=== PATIENT | female | born 1960 | race Caucasian/White ===

== ENCOUNTER 2020-07-14 17:26 | Observation (INO) | payer OTHER ==
--- NOTE | 2020-07-14 18:13 | ED ---
General Adult HPI - General Chief complaint: Recheck/Abnormal Lab/Rx Stated complaint: Abn Labs Time Seen by Provider: 07/14/20 17:30 Source: patient, EMS, RN notes reviewed, old records reviewed Mode of arrival: EMS Limitations: no limitations - History of Present Illness Initial comments: This is a 60-year-old female who presents emergency department from [facility]. Patient was told to come to the hospital because her creatinine was elevated and she went to [place] in the repeated blood work and determine it was elevated and they wanted her transferred to see nephrology per her doctor's instructions. Patient states she's been a symptomatic she's had no recent fever chills or cough she's had no dysuria or hematuria. Patient denies any abdominal pain patient's nausea vomiting diarrhea. Patient denies any shortness of breath or difficulty breathing. Patient denies any kidney problems in the past. Patient denies any medication changes. - Related Data Allergies Allergy/AdvReac Type Severity Reaction Status Date / Time No Known Allergies Allergy Verified 07/14/20 17:40 Review of Systems ROS Statement: Those systems with pertinent positive or pertinent negative responses have been documented in the HPI. ROS Other: All systems not noted in ROS Statement are negative. Past Medical History Past Medical History: Atrial Fibrillation, Heart Failure, Hypertension, Osteoarthritis (OA) History of Any Multi-Drug Resistant Organisms: None Reported Past Surgical History: Heart Catheterization, Orthopedic Surgery, Pacemaker Additional Past Surgical History / Comment(s): Cardioverted, loop recorder, RUI Past Psychological History: No Psychological Hx Reported Smoking Status: Never smoker Past Alcohol Use History: Occasional Past Drug Use History: None Reported General Exam - General Exam Comments Initial Comments: GENERAL: Patient is well-developed and well-nourished. Patient is nontoxic and well- hydrated and is in no acute distress. ENT: Neck is soft and supple. No significant lymphadenopathy is noted. Oropharynx is clear. Moist mucous membranes. Neck has full range of motion without eliciting any pain. EYES: The sclera were anicteric and conjunctiva were pink and moist. Extraocular movements were intact and pupils were equal round and reactive to light. Eyelids were unremarkable. PULMONARY: Unlabored respirations. Good breath sounds bilaterally. No audible rales rhonchi or wheezing was noted. CARDIOVASCULAR: There is a regular rate and rhythm without any murmurs gallops or rubs. ABDOMEN: Soft and nontender with normal bowel sounds. SKIN: Skin is clear with no lesions or rashes and otherwise unremarkable. NEUROLOGIC: Patient is alert and oriented x3. Cranial nerves II through XII are grossly intact. Motor and sensory are also intact. Normal speech, volume and content. Symmetrical smile MUSCULOSKELETAL: Normal extremities with adequate strength and full range of motion. No lower extremity swelling or edema. No calf tenderness. LYMPHATICS: No significant lymphadenopathy is noted PSYCHIATRIC: Normal psychiatric evaluation. Limitations: no limitations Course Vital Signs 07/14/20 07/14/20 17:30 18:20 Temperature 98.5 F Pulse Rate 66 85 Respiratory 18 18 Rate Blood Pressure 135/56 142/67 O2 Sat by Pulse 100 100 Oximetry Medical Decision Making - Medical Decision Making I spoke with the significant hospice agreed to admit the patient admitted the patient wrote admitting orders. - Lab Data Lab Results 07/14/20 Range/Units 18:20 Urine Color Colorless Urine Appearance Clear (Clear) Urine pH 6.0 (5.0-8.0) Ur Specific [place] 1.007 (1.001-1.035) Urine Protein Negative (Negative) Urine Glucose (UA) Negative (Negative) Urine Ketones Negative (Negative) Urine Blood Negative (Negative) Urine Nitrite Negative (Negative) Urine Bilirubin Negative (Negative) Urine Urobilinogen <2.0 (<2.0) mg/dL Ur Leukocyte Esterase Negative (Negative) Disposition Clinical Impression: Acute renal failure Disposition: ADMITTED IP TO THIS HOSP Referrals: Jimmy Guerra MD [Primary Care Provider] - 1-2 days Time of Disposition: 19:10
[2020-07-14] MEDS ORDERED: SODIUM CHLORIDE 0.9% 1,000 ML IV SCH (18:15)
[2020-07-14 18:28] LABS: Appearance,Urine Clear (Clear); Bilirubin,Urine Negative (Negative); Blood,Urine Negative (Negative); Color,Urine Colorless; Glucose,Urine (UA) Negative (Negative); Ketones,Urine Negative (Negative); Leukocyte Esterase,Urine Negative (Negative); Nitrite,Urine Negative (Negative); Protein,Urine Negative (Negative); Specific Gravity,Urine 1.007 (1.001-1.035); Urobilinogen,Urine <2.0 mg/dL (<2.0)
--- NOTE | 2020-07-14 18:51 | US ---
EXAMINATION TYPE: US renals and bladder DATE OF EXAM: 07/14/2020 COMPARISON: NONE CLINICAL HISTORY: Acute renal failure. Difficult exam due to overlying bowel gas and patient body hab itus EXAM MEASUREMENTS: Right Kidney: 9.7 x 4.6 x 5.0 cm Left Kidney: 11.3 x 4.7 x 5.2 cm Right Kidney: No hydronephrosis or masses seen. Measuring smaller than left Left Kidney: No hydronephrosis or masses seen Bladder: Not fully distended, wnl as visualized Bilateral Jets seen: No IMPRESSION: No evidence of renal mass or obstruction. Urinary bladder appears normal. No ureteral jet seen during the exam.
[2020-07-14] MEDS ORDERED: SODIUM CHLORIDE 0.9% 1,000 ML IV ONE (19:45)
[2020-07-15] MEDS ORDERED: SODIUM CHLORIDE 0.9% 500 ML 500 ML IV ONE (01:03)
[2020-07-15] MEDS ORDERED: SODIUM CHLORIDE 0.9% 1,000 ML IV ONE (01:44)
[2020-07-15] MEDS: SODIUM CHLORIDE 0.9% 1,000 ML IV SCH ×4 (02:40→20:03)
[2020-07-15] MEDS ORDERED: ACETAMINOPHEN TAB 500 MG TAB PO PRN (12:55)
[2020-07-15 13:30] LABS: Basophils % (A) 0 %; Eosinophils # (A) 0.1 k/uL (0-0.7); Eosinophils % (A) 2 %; HCT 33.2 % (34.0-46.0); HGB 10.5 gm/dL (11.4-16.0); Hypochromasia Slight; Lymphocytes # (A) 1.2 k/uL (1.0-4.8); Lymphocytes % (A) 25 %; MCH 32.4 pg (25.0-35.0); MCHC 31.7 g/dL (31.0-37.0); MCV 102.1 fL (80.0-100.0); Macrocytosis Slight; Mean Platelet Volume 10.8; Monocytes # (A) 0.4 k/uL (0-1.0); Monocytes % (A) 9 %; Neutrophils # (A) 2.8 k/uL (1.3-7.7); Neutrophils % (A) 60 %; Platelet Count 173 k/uL (150-450); RBC 3.25 m/uL (3.80-5.40); RDW 13.9 % (11.5-15.5); WBC 4.7 k/uL (3.8-10.6)
[2020-07-15] MEDS: AMIODARONE 200 MG TAB PO SCH (13:51)
[2020-07-15] MEDS: ASPIRIN 81 MG PO SCH (13:51)
[2020-07-15 13:54] LABS: African American GFR (CKD) 35 (>60 ml/min/1.73 sqM); Anion Gap 5 mmol/L; Blood Urea Nitrogen 44 mg/dL (7-17); Calcium 8.3 mg/dL (8.4-10.2); Carbon Dioxide 25 mmol/L (22-30); Chloride 112 mmol/L (98-107); Glucose 145 mg/dL (74-99); Non-African American GFR(CKD) 30 (>60 ml/min/1.73 sqM); Potassium 5.3 mmol/L (3.5-5.1); Sodium 142 mmol/L (137-145)
[2020-07-15] MEDS ORDERED: NON FORMULARY DRUG (Metoprolol Tartrate [Lopressor] 100 MG Tablet) PO SCH (16:00)
[2020-07-15] MEDS: RIVAROXABAN 20 MG TAB PO SCH (16:45)
[2020-07-15 18:19] LABS: Appearance,Urine Clear (Clear); Bilirubin,Urine Negative (Negative); Blood,Urine Negative (Negative); Color,Urine Light Yellow; Glucose,Urine (UA) Negative (Negative); Ketones,Urine Negative (Negative); Leukocyte Esterase,Urine Trace (Negative); Nitrite,Urine Negative (Negative); PH, Urine 5.5 (5.0-8.0); Protein,Urine Negative (Negative); RBC,Urine <1 /hpf (0-5); Specific Gravity,Urine 1.017 (1.001-1.035); Squamous Epithelial Cell,Urine 1 /hpf (0-4); Urobilinogen,Urine <2.0 mg/dL (<2.0); WBC,Urine 3 /hpf (0-5)
--- NOTE | 2020-07-15 19:02 | CONS ---
CONSULTATION REASON FOR CONSULT: Renal failure. HISTORY OF PRESENT ILLNESS: Patient is a 60-year-old female who was transferred from [facility] because of renal failure. The patient stated that she was called by her PCP, as her labs were abnormal and serum creatinine was significantly elevated, and she was advised to go into the hospital. She was then transferred from [place] for need for nephrology evaluation. The patient denies any prior history of kidney diseases. She denies any change in her urine output prior to admission. Of note, systolic blood pressure was noted to be in the 70s early this morning. The patient did admit to occasional lightheadedness and dizziness prior to admission. She is maintained on ZO inhibitors as outpatient and she did admit to occasional use of NSAIDs, although not on a frequent basis. No changes in her diuretics or ZO inhibitors recently. I do not have the previous creatinine, but the serum creatinine from today was 1.8 mg/dL. The patient is maintained on IV fluids. Her current UA is completely benign. PAST MEDICAL HISTORY: Hypertension, atrial fibrillation, osteoarthritis. PAST SURGICAL HISTORY: Cardiac catheterization, pacemaker placement, RUI. SOCIAL HISTORY: Negative for smoking, drug abuse or alcohol abuse. MEDICATIONS: Medications prior to admission included Zoloft, vitamin D3, Lipitor, Tylenol, potassium, Lopressor, Lasix, amiodarone, lisinopril, Xarelto, Imdur, Ecotrin, vitamin B12. REVIEW OF SYSTEMS: As per HPI. Other systems negative. PHYSICAL EXAMINATION: Patient is comfortable, awake, alert, oriented x3, not in any acute distress. Blood pressure 92/55, heart rate 58 per minute. She is afebrile. EXAMINATION OF THE HEART: S1 and S2. EXAMINATION OF LUNGS: Bilateral breath sounds are heard. ABDOMEN: Soft, non-tender and obese. Examination of lower extremities shows no evidence of edema. SUSTAINABILITY PROJECT COORDINATOR exam is grossly intact. LABS/IMAGING: Sodium 142, potassium 5.3, chloride 112. CO2 is 25, BUN 44, creatinine 1.8. UA is completely benign, with no evidence of blood or protein in the urine. Ultrasound of the kidneys done yesterday shows no evidence of renal masses, hydronephrosis or stones. Right kidney 9.7 cm. Left kidney 11.3 cm. ASSESSMENT: 1. Acute kidney injury secondary to hypotension in the setting of use of ZO inhibitors with occasional use of NSAIDs as well prior to admission. Currently patient has good urine output. She is maintained on IV fluids. I have a creatinine of 1.8 mg/dL. Prior labs are not available for comparison. Patient is advised that she will be maintained on IV fluids. She needs to continue to hold off on the ZO inhibitors, avoid NSAIDs, and we will repeat labs in a.m. 2. Mild hyperkalemia associated with acute kidney injury. Expect improvement with improving renal function. 3. Rule out chronic kidney disease. UA is completely benign and ultrasound is also unremarkable. We will try to obtain previous serum creatinine levels. 4. Anemia; rule out iron deficiency. PLAN: Continue IV fluids. Continue to hold off on ZO inhibitors, diuretics and potassium supplementation. Try to obtain previous labs for comparison of renal function. Check iron profile. Repeat labs in a.m. Patient can likely be discharged tomorrow morning, depending on her labs. Thank you for this consultation. Will continue to follow the patient with you during her hospitalization. MMODL / ESAN: [id number] /
[2020-07-15] MEDS: busPIRone HCl 5 MG TAB PO SCH (20:03)
[2020-07-15] MEDS ORDERED: ATORVASTATIN 40 MG TAB PO SCH (21:00)
[2020-07-15] MEDS ORDERED: SERTRALINE 100 MG TAB PO SCH (21:00)
--- NOTE | 2020-07-15 23:29 | P.HPIM ---
History of Present Illness H&P Date: 07/15/20 Chief Complaint: Elevated creatinine level Patient is a 60-year-old female with a known history of atrial fibrillation status post permanent pacemaker placement and on anticoagulation with Xarelto, chronic CHF with diastolic dysfunction, hypertension, osteoarthritis was sent to hospital due to elevated creatinine level. Patient had lab work-up done as an outpatient showed elevated creatinine level of 3.2 and was sent to [facility] where she had lab work-up done with creatinine level of 2.4. Patient was sent to hospital for nephrology evaluation at [facility]. Otherwise patient denied any complaints of dysuria or hematuria. No nausea vomiting or a bdominal pain or diarrhea. Patient does take Lasix at home. No complaints of abdominal pain. No chest pain or shortness revealed no fever no chills. Denies any recent illnesses. Blood pressure was 71/36 and pulse 61 respiration 15 and pulse ox 97% on room air Renal ultrasound showed no evidence of renal mass or obstruction. Urinary bladder appears normal. No ureteral jets seen during the exam. Laboratory data showed sodium 142, potassium 5.3, chloride 112, BUN 44 and creatinine 1.8 calcium 8.3 urinalysis is negative for infection. Review of Systems Constitutional: Patient denies any fever or chills . No generalized weakness or weight loss. Abdomen: Patient denied nausea vomiting and diarrhea and abdominal pain. Cardiovascular: Patient denies any chest pain or short of breath no palpitations. Respiratory: patient denied any cough or sputum production. No shortness of breath Neurologic: Patient denied any numbness or tingling headache. Musculoskeletal: Patient denies any complaints of joint swelling or deformity. Skin: Negative Psychiatric: Negative Endocrine: No heat or cold intolerance. No recent weight gain. Genitourinary: No dysuria or hematuria. All other 14 point ROS negative except the above Past Medical History Past Medical History: Atrial Fibrillation, Heart Failure, Hypertension, Osteoarthritis (OA) History of Any Multi-Drug Resistant Organisms: None Reported Past Surgical History: Section, Heart Catheterization, Pacemaker Additional Past Surgical History / Comment(s): Cardioverted, loop recorder (2018), RUI, pacemaker (2019) Past Anesthesia/Blood Transfusion Reactions: No Reported Reaction Type of Cardiac Device: Unknown Device Placement Date:: 2018 Past Psychological History: No Psychological Hx Reported Smoking Status: Never smoker Past Alcohol Use History: Occasional Past Drug Use History: None Reported Medications and Allergies Home Medications Medication Instructions Recorded Confirmed Type Acetaminophen [Tylenol] 1,000 mg PO Q6H PRN 07/14/20 07/14/20 History Amiodarone [Cordarone] 200 mg PO DAILY 07/14/20 07/14/20 History Aspirin EC [Ecotrin Low Dose] 81 mg PO DAILY 07/14/20 07/14/20 History Atorvastatin [Lipitor] 40 mg PO HS 07/14/20 07/14/20 History Cholecalciferol [Vitamin D3 (25 2,000 unit PO DAILY 07/14/20 07/14/20 History Mcg = 1000 Iu)] Cyanocobalamin (Vitamin B-12) 1,000 mcg PO DAILY 07/14/20 07/14/20 History [Vitamin B-12] Furosemide [Lasix] 160 mg PO TUTH 07/14/20 07/14/20 History Isosorbide Mononitrate ER [Imdur] 30 mg PO DAILY 07/14/20 07/14/20 History Metoprolol Tartrate [Lopressor] 100 mg PO TID 07/14/20 07/14/20 History Potassium Chloride [Klor-Con 10] 10 meq PO DAILY 07/14/20 07/14/20 History Rivaroxaban [Xarelto] 20 mg PO DAILY 07/14/20 07/14/20 History Sertraline HCl [Zoloft] 100 mg PO HS 07/14/20 07/14/20 History busPIRone HCL 15 mg PO BID 07/14/20 07/14/20 History lisinopriL 40 mg PO DAILY 07/14/20 07/14/20 History Allergies Allergy/AdvReac Type Severity Reaction Status Date / Time No Known Allergies Allergy Verified 07/14/20 20:19 Physical Exam Vitals: Vital Signs Temp Pulse Pulse Resp BP BP Pulse Ox 07/15/20 07:51 98.7 F 58 L 16 92/55 100 07/15/20 05:12 92/54 07/15/20 01:40 72/42 07/15/20 01:03 70/40 07/15/20 00:44 97.9 F 61 15 71/36 97 07/14/20 23:36 16 07/14/20 22:27 98.8 F 71 18 113/67 97 07/14/20 21:22 62 18 113/58 100 12/30/20 18:20 85 18 142/67 100 07/14/20 17:30 98.5 F 66 18 135/56 100 Intake and Output 07/14/20 07/15/20 07/15/20 22:59 06:59 14:59 Intake Total 222 120 Balance 222 120 Intake: Oral 222 120 Other: Voiding Method Toilet Weight 149.685 kg PHYSICAL EXAMINATION: Patient is lying in the bed comfortably, no acute distress, awake alert and oriented.. HEENT: Normocephalic. Neck is supple. Pupils reactive. Nostrils clear. Oral cavity is moist. Ears reveal no drainage. Neck reveals no JVD, carotid bruits, or thyromegaly. CHEST EXAMINATION: Trachea is central. Symmetrical expansion. Lung pablo clear to auscultation and percussion. CARDIAC: Normal S1, S2 with no gallops. No murmurs ABDOMEN: Soft. Bowel sounds normal. No organomegaly. No abdominal bruits. Extremities: reveal no edema. No clubbing or cyanosis Neurologically awake, alert, oriented x3 with well-coordinated movements. No f ocal deficits noted Skin: No rash or skin lesions. Psychiatric: Coperative. Nonsuicidal Musculoskeletal: No joint swelling or deformity. Normal range of motion. Results CBC & Chem 7: 07/15/20 13:02 07/15/20 13:02 Thrombosis Risk Factor Assmnt - DVT/VTE Prophylaxis DVT/VTE Prophylaxis: Pharmacologic Prophylaxis ordered - Choose All That Apply Any of the Below Risk Factors Present?: Yes Each Factor Represents 1 point: Age 41-60 years Other Risk Factors: No Other congenital or acquired thrombophilia - If yes, enter type in comment: No Thrombosis Risk Factor Assessment Total Risk Factor Score: 1 Thrombosis Risk Factor Assessment Level: Low Risk Assessment and Plan Assessment: Acute kidney Injury secondary to hypotension due to blood pressure medication including ZO inhibitor's and Lasix. Mild hyperkalemia secondary acute kidney injury improving Atrial fibrillation chronic status post permanent pacemaker placement Morbid obesity with BMI 50.2 Macrocytic anemia rule out iron deficiency. Patient does take vitamin B12 at home. DVT prophylaxis with patient is already Xarelto Plan: Patient will be continued on IV hydration with normal saline and hold blood pressure medications at this time. Continue with amiodarone and aspirin and statins. Continue with home medications. Ultrasound of the renals showed no evidence of obstruction. UA is negative for infection. Nephrology is on board. Further recommendations based on the clinical course. Time with Patient: Greater than 30
[2020-07-16 02:03] LABS: % Iron Saturation 16.43 (12.00-45.00)
[2020-07-16 07:01] LABS: Basophils % (A) 1 %; Eosinophils # (A) 0.1 k/uL (0-0.7); Eosinophils % (A) 3 %; HCT 32.2 % (34.0-46.0); HGB 10.1 gm/dL (11.4-16.0); Hypochromasia Slight; Lymphocytes # (A) 1.1 k/uL (1.0-4.8); Lymphocytes % (A) 26 %; MCH 31.9 pg (25.0-35.0); MCHC 31.3 g/dL (31.0-37.0); Macrocytosis Slight; Mean Platelet Volume 9.9; Monocytes # (A) 0.5 k/uL (0-1.0); Monocytes % (A) 11 %; Neutrophils # (A) 2.4 k/uL (1.3-7.7); Neutrophils % (A) 55 %; Platelet Count 168 k/uL (150-450); RBC 3.16 m/uL (3.80-5.40); RDW 13.8 % (11.5-15.5); WBC 4.4 k/uL (3.8-10.6)
[2020-07-16] MEDS: RIVAROXABAN 20 MG TAB PO SCH (08:16)
[2020-07-16] MEDS: busPIRone HCl 5 MG TAB PO SCH (08:17)
[2020-07-16] MEDS: AMIODARONE 200 MG TAB PO SCH (08:17)
[2020-07-16] MEDS: ASPIRIN 81 MG PO SCH (08:17)
[2020-07-16] MEDS ORDERED: CHOLECALCIFEROL 1,000 UNIT TAB PO SCH (09:00)
[2020-07-16] MEDS ORDERED: CYANOCOBALAMIN 500 MCG TAB PO SCH (09:00)
[2020-07-16 09:41] LABS: African American GFR (CKD) 43.4 (60.0-200.0); Anion Gap 3.6 mmol/L (4.00-12.00); BUN/Creat Ratio 23.33 Ratio (12.00-20.00); Calcium 8.4 mg/dL (8.7-10.3); Carbon Dioxide 25.4 mmol/L (21.6-31.8); Non-African American GFR(CKD) 37.5 (60.0-200.0); Potassium 5.5 mmol/L (3.5-5.5)
[2020-07-16 14:55] VITALS: BP 130/88; PULSE 70; RESP 18; TEMP 97.6
[2020-07-16] MEDS ORDERED: FUROSEMIDE 10 MG/ML 2 ML VIAL IV ONE (16:00)
--- NOTE | 2020-07-16 16:29 | PN ---
PROGRESS NOTE Patient is seen for followup for acute kidney injury. She was admitted to the hospital with a hypotension and acute kidney injury. Serum creatinine was 1.8. It was actually a bit higher at [facility] prior to being transferred to [facility]. The patient was on ZO inhibitors which are currently on hold. Her renal function has improved, creatinine down to 1.5 now. Blood pressure remains on the lower side, although significantly improved. Overall, patient states she is feeling better. EXAMINATION: Blood pressure was 99/67 this morning, heart rate 77 per minute, she is afebrile. Examination of the heart S1, S2. Examination of the lungs, bilateral breath sounds are heard. Abdomen is soft, nontender. Examination of lower extremities shows no evidence of edema. COMPRESSOR REPAIRER exam grossly intact. LABS: Show sodium 143, potassium 5.5, chloride 114, BUN 35, serum creatinine 1.5. UA is completely benign. Hemoglobin 10.1 g/dL. ASSESSMENT: 1. Acute kidney injury, prerenal, associated with hypotension, hypoperfusion, currently improved. 2. Hyperkalemia associated with acute kidney injury, use of ZO inhibitors. Serum potassium is slightly higher today. Patient is not on any ZO inhibitor. She will be maintained on low-potassium diet. Blood sugars are not significantly elevated. UA is completely benign. Renal ultrasound is unremarkable. 3. Hypertension, blood pressure currently low. Hold off on antihypertensive medications. 4. Atrial fibrillation, rate is controlled, maintained on Xarelto. PLAN: Maintain patient on low-potassium diet. Continue to hold off on ZO inhibitors and followup as outpatient in about 1-2 weeks time. Repeat labs in 4-5 days post discharge to follow up on the potassium levels and maintain low-potassium diet upon discharge. MMODL / IJN: [id number] /
--- NOTE | 2020-08-02 23:45 | P.DS ---
Providers Date of admission: 07/14/20 19:49 Expected date of discharge: 07/16/20 Attending physician: Onesimo Barrera Consults: 07/14/20 19:45 Consult Physician Urgent Consulting Provider: Klarissa Hassan Consult Reason/Comments: Acute renal failure Do you want consulting provider notified?: Yes Primary care physician: Jimmy Guerra MD Hospital Course: Discharge diagnosis Acute kidney Injury secondary to hypotension due to blood pressure medication including ZO inhibitor's and Lasix. Mild hyperkalemia secondary acute kidney injury improving Atrial fibrillation chronic status post permanent pacemaker placement Morbid obesity with BMI 50.2 Macrocytic anemia rule out iron deficiency. Patient does take vitamin B12 at home. DVT prophylaxis with patient is already Xarelto Hospital course Patient is a 60-year-old female with a known history of atrial fibrillation status post permanent pacemaker placement and on anticoagulation with Xarelto, chronic CHF with diastolic dysfunction, hypertension, osteoarthritis was sent to hospital due to elevated creatinine level. Patient had lab work-up done as an outpatient showed elevated creatinine level of 3.2 and was sent to [facility] where she had lab work-up done with creatinine level of 2.4. Patient was sent to hospital for nephrology evaluation at [facility]. Otherwise patient denied any complaints of dysuria or hematuria. No nausea vomiting or abdominal pain or diarrhea. Patient does take Lasix at home. No complaints of abdominal pain. No chest pain or shortness revealed no fever no chills. Denies any recent illnesses. Blood pressure was 71/36 and pulse 61 respiration 15 and pulse ox 97% on room air Renal ultrasound showed no evidence of renal mass or obstruction. Urinary bladder appears normal. No ureteral jets seen during the exam. Laboratory data showed sodium 142, potassium 5.3, chloride 112, BUN 44 and creatinine 1.8 calcium 8.3 urinalysis is negative for infection. Plan: Patient was continued on IV hydration with normal saline and hold blood pressure medications at this time. Continued with amiodarone and aspirin and statins. Continued with home medications. Ultrasound of the renals showed no evidence of obstruction. UA is negative for infection. Nephrology is on board. Creatinine level improved to 1.5 today. Blood pressure medications adjusted. Patient was to follow-up with primary care physician for repeat lab work- up.Patient did improve symptomatically. PHYSICAL EXAMINATION: Patient is lying in the bed comfortably, no acute distress, awake alert and oriented.. HEENT: Normocephalic. Neck is supple. Pupils reactive. Nostrils clear. Oral cavity is moist. Ears reveal no drainage. Neck reveals no JVD, carotid bruits, or thyromegaly. CHEST EXAMINATION: Trachea is central. Symmetrical expansion. Lung pablo clear to auscultation and percussion. CARDIAC: Normal S1, S2 with no gallops. No murmurs ABDOMEN: Soft. Bowel sounds normal. No organomegaly. No abdominal bruits. Extremities: reveal no edema. No clubbing or cyanosis Neurologically awake, alert, oriented x3 with well-coordinated movements. No focal deficits noted Skin: No rash or skin lesions. Psychiatric: Coperative. Nonsuicidal Musculoskeletal: No joint swelling or deformity. Normal range of motion. Discharge physical examination was done and vitals reviewed. Patient Condition at Discharge: Fair Plan - Discharge Summary Discharge Rx Participant: No New Discharge Prescriptions: New Metoprolol Tartrate 25 mg PO BID #60 tab Continue busPIRone HCL 15 mg PO BID Sertraline HCl [Zoloft] 100 mg PO HS Cholecalciferol [Vitamin D3 (25 Mcg = 1000 Iu)] 2,000 unit PO DAILY Atorvastatin [Lipitor] 40 mg PO HS Acetaminophen [Tylenol] 1,000 mg PO Q6H PRN PRN Reason: Pain Amiodarone [Cordarone] 200 mg PO DAILY Rivaroxaban [Xarelto] 20 mg PO DAILY Cyanocobalamin (Vitamin B-12) [Vitamin B-12] 1,000 mcg PO DAILY Aspirin EC [Ecotrin Low Dose] 81 mg PO DAILY Discontinued Potassium Chloride [Klor-Con 10] 10 meq PO DAILY Metoprolol Tartrate [Lopressor] 100 mg PO TID Furosemide [Lasix] 160 mg PO TUTH lisinopriL 40 mg PO DAILY Isosorbide Mononitrate ER [Imdur] 30 mg PO DAILY Discharge Medication List Acetaminophen [Tylenol] 1,000 mg PO Q6H PRN 07/14/20 [History] Amiodarone [Cordarone] 200 mg PO DAILY 07/14/20 [History] Aspirin EC [Ecotrin Low Dose] 81 mg PO DAILY 07/14/20 [History] Atorvastatin [Lipitor] 40 mg PO HS 07/14/20 [History] Cholecalciferol [Vitamin D3 (25 Mcg = 1000 Iu)] 2,000 unit PO DAILY 07/14/20 [History] Cyanocobalamin (Vitamin B-12) [Vitamin B-12] 1,000 mcg PO DAILY 07/14/20 [History] Rivaroxaban [Xarelto] 20 mg PO DAILY 07/14/20 [History] Sertraline HCl [Zoloft] 100 mg PO HS 07/14/20 [History] busPIRone HCL 15 mg PO BID 07/14/20 [History] Metoprolol Tartrate 25 mg PO BID #60 tab 07/16/20 [Rx] Follow up Appointment(s)/Referral(s): Jimmy Guerra MD [Primary Care Provider] - 1-2 days (Office closed for Holiday. Please call next - July 19 for follow-up appt. ) Patient Instructions/Handouts: Acute Kidney Injury (DC) Activity/Diet/Wound Care/Special Instructions: per nephrology- continue to hold off on ZO inhibitors and NSAIDS. Reevaluate with PCP. Discharge Disposition: HOME SELF-CARE
== END 2020-07-16 16:10 | disposition home or self-care (01) ==
LOC: EC 17:26 → 4SSUR 19:49 → INTOOBSV 19:49 → UNDODISIN 07-16 16:10
PROVIDERS: ADMIT Hospitalist; ATTEND Hospitalist
DX: I95.9 Hypotension, unspecified (principal); N17.9 Acute kidney failure, unspecified; T46.4X5A Adverse effect of angiotensin-converting-enzyme inhibitors, initial encounter; T50.1X5A Adverse effect of loop [high-ceiling] diuretics, initial encounter; E87.5 Hyperkalemia; I48.20 Chronic atrial fibrillation, unspecified; E66.01 Morbid (severe) obesity due to excess calories; D53.9 Nutritional anemia, unspecified; I11.0 Hypertensive heart disease with heart failure; I50.32 Chronic diastolic (congestive) heart failure; M19.90 Unspecified osteoarthritis, unspecified site; Z98.890 Other specified postprocedural states; Z95.0 Presence of cardiac pacemaker; Z68.43 Body mass index [BMI] 50.0-59.9, adult; Z79.899 Other long term (current) drug therapy; Z79.82 Long term (current) use of aspirin; Z79.01 Long term (current) use of anticoagulants
CPT/HCPCS: 96361 ×3; 96360; 99285; 80048 ×2; 83540; 83550; 85025 ×2; 81003; 81001; 76770; G0378 ×3

== ENCOUNTER → 2022-10-03 | Day surgery (SDC) | payer MEDICARE, OTHER ==
[2022-09-27 11:14] VITALS: BMI 50.1
[~2022-10-03] MED LIST: SODIUM CHLORIDE 0.9% 1,000 ML IV SCH
[2022-10-03 08:47] VITALS: BP 136/82; PULSE 93; RESP 16; TEMP 97.7
[2022-10-03 09:13] LABS: Albumin 4.5 g/dL (3.5-5.0); Calcium 9.5 mg/dL (8.4-10.2); Potassium 3.9 mmol/L (3.5-5.1); Total Bilirubin 0.7 mg/dL (0.2-1.3); Total Protein 8.1 g/dL (6.3-8.2)
--- NOTE | 2022-10-03 11:15 | P.HPCAR ---
History of Present Illness This is Dr. 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 Particularly the His bundle lead does not have any obvious signs of dislodgment 2-D echo and Doppler study shows a dilated RV, normal LV systolic function ejection fraction greater than 50-55%, mild TR, left atrial enlargement PLAN: In view of the persistent long-standing atrial fibrillation, dilated left atrium and a creatinine 1.14, I would recommend treatment for dofetilide at either 125 g twice daily or 250 g twice daily to begin with She may need in A. fib ablation in the future She is to continue anticoagulation with xarelto In the interim I would recommend increasing the dose of Lopressor to 150 mg bid if possible and discontinue Imdur HPI Patient complains of shortness of breath on exertion. She has persistent atrial fibrillation that has not responded to treatment either with by ventricle pacing and oral amiodarone She does have a history of morbid obesity history of hypertension, history of DVT ROS: No fever chills or rigors, no cough, phlegm or expectoration, no nausea, vomiting or diarrhea, no hematuria, dysuria, no musculoskeletal complaints, no strokes or seizures, no skin lesions. EXAMINATION: 97.7F, pulse rate in the 90s, blood pressure 136/82 mmHg Irregular heart sounds No orthopnea Breath sounds are reduced bilaterally REVIEW OF LABS, ECG & MEDICAL DATA Sodium 144, potassium 3.9, BUN 26 and creatinine 1.14, GFR 52 Normal liver function Normal TSH of 1.92 Discharge date note Patient was discharged home after evaluation of the LV, evaluation of the His bundle lead function and pacemaker re-programming as well as cinefluoroscopy of the leads and venography of the left upper extremity, left She'll be discharged home and we will schedule her for dofetilide admission, at least 3 months after discontinuing amiodarone Upgrade to a left bundle pacing lead will be difficult since her again is almost near complete occluded However her creatinine is 1.14 and she should tolerate lower doses of dofetilide It is quite likely that she will need in A. fib ablation in the future In the interim I would increase Lopressor to 150 mg twice daily Physical Exam Vitals: Vital Signs Temp Pulse Resp BP Pulse Ox 10/03/22 08:35 97.7 F 93 16 136/82 97 Intake and Output 10/02/22 10/03/22 10/03/22 22:59 06:59 14:59 Intake Total 150 Balance 150 Intake: IV 150 Other: Weight 147 kg Past Medical History Past Medical History: Atrial Fibrillation, Heart Failure, Deep Vein Thrombosis (DVT), Hypertension, Osteoarthritis (OA) Additional Past Medical History / Comment(s): See Dr. Cruz's H&P. States DrMegan's are watching her kidneys. History of Any Multi-Drug Resistant Organisms: None Reported Past Surgical History: Section, Heart Catheterization, Pacemaker Additional Past Surgical History / Comment(s): Cardioversions , loop recorder (2018), RUI, pacemaker (2019) Past Anesthesia/Blood Transfusion Reactions: No Reported Reaction Type of Cardiac Device: Unknown Device Placement Date:: 2018 Smoking Status: Never smoker - Past Family History Mother Family Medical History: No Reported History Brother(s) Family Medical History: Cancer Additional Family Medical History / Comment(s): Colon Sister(s) Family Medical History: Cancer Additional Family Medical History / Comment(s): Breast Physical Examination Vital Signs Temp Pulse Resp BP Pulse Ox 10/03/22 08:35 97.7 F 93 16 136/82 97 Intake and Output 10/02/22 10/03/22 10/03/22 22:59 06:59 14:59 Intake Total 150 Balance 150 Intake: IV 150 Other: Weight 147 kg Results 10/03/22 08:25 Cardiac Enzymes 10/03/22 Range/Units 08:25 AST 32 (14-36) U/L Comprehensive Metabolic Panel 10/03/22 Range/Units 08:25 Sodium 144 (137-145) mmol/L Potassium 3.9 (3.5-5.1) mmol/L Chloride 106 (98-107) mmol/L Carbon Dioxide 27 (22-30) mmol/L BUN 26 H (7-17) mg/dL Creatinine 1.14 H (0.52-1.04) mg/dL Glucose 63 L (74-99) mg/dL Calcium 9.5 (8.4-10.2) mg/dL AST 32 (14-36) U/L ALT 34 (4-34) U/L Alkaline Phosphatase 123 (38-126) U/L Total Protein 8.1 (6.3-8.2) g/dL Albumin 4.5 (3.5-5.0) g/dL Current Medications Generic Name Dose Route Start Last Admin Trade Name Freq PRN Reason Stop Dose Admin Sodium Chloride 1,000 mls @ 20 mls/hr 10/03/22 05:46 10/03/22 08:25 Saline 0.9% IV 11/02/22 05:47 150 mls .Q24H MARTÍN Administration Intake and Output 10/02/22 10/03/22 10/03/22 22:59 06:59 14:59 Intake Total 150 Balance 150 Intake: IV 150 Other: Weight 147 kg Patient Weight 10/04/22 06:59 Weight 147 kg 10/03/22 08:25
--- NOTE | 2022-10-03 11:16 | P.DS ---
Providers Attending physician: Joby Cruz Primary care physician: NIKOLAS Teague Assessment: Discharge date note Patient was discharged home after evaluation of the LV, evaluation of the His bundle lead function and pacemaker re-programming as well as cinefluoroscopy of the leads and venography of the left upper extremity, left She'll be discharged home and we will schedule her for dofetilide admission, at least 3 months after discontinuing amiodarone Upgrade to a left bundle pacing lead will be difficult since her again is almost near complete occluded However her creatinine is 1.14 and she should tolerate lower doses of dofetilide It is quite likely that she will need in A. fib ablation in the future In the interim I would increase Lopressor to 150 mg twice daily Patient Condition at Discharge: Stable Plan - Discharge Summary Discharge Rx Participant: Yes New Discharge Prescriptions: No Action busPIRone HCL 15 mg PO DAILY Sertraline HCl [Zoloft] 100 mg PO HS Cholecalciferol [Vitamin D3 (25 Mcg = 1000 Iu)] 2,000 unit PO DAILY Atorvastatin [Lipitor] 40 mg PO HS Acetaminophen [Tylenol] 1,000 mg PO Q6H PRN PRN Reason: Pain Rivaroxaban [Xarelto] 20 mg PO DAILY Cyanocobalamin (Vitamin B-12) [Vitamin B-12] 1,000 mcg PO DAILY Metoprolol Tartrate [Lopressor] 50 mg PO DAILY Isosorbide Mononitrate ER [Imdur] 30 mg PO DAILY Furosemide [Lasix] 40 mg PO DAILY calcitrioL [Calcitriol] 0.25 mcg PO MOWE Metoprolol Tartrate 100 mg PO BID Levothyroxine Sodium 100 mcg PO DAILY Discharge Medication List Acetaminophen [Tylenol] 1,000 mg PO Q6H PRN 07/14/20 [History] Atorvastatin [Lipitor] 40 mg PO HS 07/14/20 [History] Cholecalciferol [Vitamin D3 (25 Mcg = 1000 Iu)] 2,000 unit PO DAILY 07/14/20 [History] Cyanocobalamin (Vitamin B-12) [Vitamin B-12] 1,000 mcg PO DAILY 07/14/20 [History] Rivaroxaban [Xarelto] 20 mg PO DAILY 07/14/20 [History] Sertraline HCl [Zoloft] 100 mg PO HS 07/14/20 [History] busPIRone HCL 15 mg PO DAILY 07/14/20 [History] Furosemide [Lasix] 40 mg PO DAILY 09/27/22 [History] Isosorbide Mononitrate ER [Imdur] 30 mg PO DAILY 09/27/22 [History] Levothyroxine Sodium 100 mcg PO DAILY 09/27/22 [History] Metoprolol Tartrate 100 mg PO BID 09/27/22 [History] Metoprolol Tartrate [Lopressor] 50 mg PO DAILY 09/27/22 [History] calcitrioL [Calcitriol] 0.25 mcg PO MOWE 09/27/22 [History]
--- NOTE | 2022-10-03 13:45 | CA ---
Transthoracic Echo Report Name: Caterina Celestin Age: 62 Gender: F : 1960 Exam Date: 10/03/2022 08:57 Exam Location: [facility] Ht (in): 68 Wt (lb): 330 Ordering Physician: Joby Cruz MD ([id number]) Attending/Referring Phys: Joby Cruz MD ([id number]) Amplifier Mechanic Lisa Glover RDCS Procedure CPT: Indications: full echo for LA size/LV and RV size and function Cardiac Hx: Technical Quality: Technically difficult study Contrast 1: Lumason Total Dose (mL): 5 Contrast 2: Total Dose (mL): MEASUREMENTS (Male / Female) Normal Values 2D ECHO LV Diastolic Diameter PLAX 4.7 cm 4.2 - 5.9 / 3.9 - 5.3 cm LV Systolic Diameter PLAX 2.8 cm IVS Diastolic Thickness 1.2 cm 0.6 - 1.0 / 0.6 - 0.9 cm LVPW Diastolic Thickness 1.1 cm 0.6 - 1.0 / 0.6 - 0.9 cm LV Relative Wall Thickness 0.5 RV Internal Dim ED PLAX 4.4 cm LA Volume 112.0 cm??? 18 - 58 / 22 - 52 cm??? M-MODE Aortic Root Diameter MM 2.7 cm LA Systolic Diameter MM 5.1 cm LA Ao Ratio MM 1.9 DOPPLER AV Peak Velocity 87.9 cm/s AV Peak Gradient 3.1 mmHg AV Mean Velocity 63.8 cm/s AV Mean Gradient 1.8 mmHg AV Velocity Time Integral 15.3 cm LVOT Peak Velocity 57.3 cm/s LVOT Peak Gradient 1.3 mmHg LVOT Velocity Time Integral 11.0 cm MV Area PHT 3.4 cm??? Mitral E Point Velocity 80.2 cm/s Mitral A Point Velocity 0.6 cm/s Mitral E to A Ratio 142.5 MV Deceleration Time 222.3 ms MV E' Velocity 8.1 cm/s Mitral E to MV E' Ratio 9.9 TR Peak Velocity 224.9 cm/s TR Peak Gradient 20.2 mmHg Right Ventricular Systolic Press 25.0 mmHg FINDINGS Left Ventricle Mildly increased left ventricular wall thickness. Left ventricular cavity size normal. No obvious regional wall motion abnormalities. Left ventricular ejection fraction is estimated at 50-55 %. Right Ventricle Moderate right ventricular dilatation. Right ventricular systolic pressure within normal limits. Decrease RV systolic function Right Atrium Mild right atrial dilatation. Catheter/pacemaker wire in the right atrial cavity. Left Atrium Severely increased left atrial volume. Mildly increased left atrial area. Mitral Valve Structurally normal mitral valve. No mitral stenosis. [id number] mitral regurgitation. Aortic Valve No aortic valve stenosis or regurgitation. Tricuspid Valve Structurally normal tricuspid valve. Moderate tricuspid regurgitation. Pulmonic Valve Structurally normal pulmonic valve. Pericardium No pericardial effusion. Echo free space anterior to the right ventricle likely represents a fat pad. Aorta Normal size aortic root and proximal ascending aorta. CONCLUSIONS 1. Left ventricular systolic function borderline normal 2. Dilated right ventricle with decreased systolic function and normal right- sided pressure 3. Mild to moderate mitral was moderate tricuspid regurgitation 4. A wire is noted in the right ventricle Lumason ECHO contrast used for improved visualization of the endocardial borders (inadequate visualization of two or more contiguous segments). Previewed by: Dr. Lucio Laguna MD (Electronically Signed) Final Date: 03 October 2022 13:44
--- NOTE | 2022-10-03 15:00 | P.EPPROC ---
- EP Procedure Note Electrophysiology Procedure Note: Diagnosis Persistent atrial fibrillation with symptoms Status post biventricular pacemaker at [place] Failed amiodarone in the past Plan Following investigations to decide course of her treatment plan for A. fib management Procedure #1: Biventricular pacemaker interrogation with reprogramming [employer]-P interrogated Remaining longevity 1.5 years RV pacing threshold 0.75 V at 0.4 ms His bundle lead threshold 1 V at 1 ms His bundle pacing was carefully evaluated with twelve-lead EKGs This is mostly pacing his right ventricle. We interrogated the QRS morphology at different outputs starting of the maximum output down to output at threshold levels No clear cut evidence of His bundle selective or nonselective pacing noted based on twelve-lead EKGs during threshold check Procedure #2: Cinefluoroscopy of the leads performed No fractures or breaks noted in any lead Atrial lead in the right atrial appendage RV lead in the RV apex His bundle lead in the upper tricuspid region No clear-cut macro dislodgment Procedure a 3: Left upper extremity venogram performed with 15 mL IV dye A very tight occlusion/stenosis in the axillary subclavian junction
--- NOTE | 2022-10-03 15:08 | P.PRLE ---
RE: Caterina Celestin Dear Dr. Bruner I had the pleasure of evaluating Rory Celestin. She has symptomatic persistent atrial fibrillation of long-standing and is undergone a biventricular pacemaker implant at [facility] in 2019. 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 This occlusion is fairly central and is bridged by large collaterals Given the above findings, implantation of a new left bundle lead to provide conduction system pacing on a new left ventricular coronary sinus lead would be very challenging unless we resort to laser lead extraction of the His bundle lead. I would opt not to do that. Her thyroid function is normal Creatinine is very mildly increased and her GFR is just a little below 60 Her 2-D echo Definity contrast showed preserved systolic function but her right ventricle was enlarged She has biatrial enlargement Therefore I feel that simply in A. fib ablation with pulmonary vein isolation and linear ablation will be inadequate, given long-standing persistence of her condition I would recommend dofetilide initiation as an inpatient and watching her QT interval, followed by electrical cardioversion In the future it is quite likely that she will need an additional therapy such as an A. fib ablation, in addition to the antiarrhythmic drug therapy The other option ventricular drug therapy would be flecainide. While the stress echo 2 years back did not show any evidence of ischemia, she does have a mildly dilated right ventricle I also indicated to her that she should opt for weight loss therapies particularly new medications such as munjaro My final recommendation would be to start with satellite first and then add in A. fib ablation to maximize the chance of maintaining sinus rhythm I asked her to stop Zoloft which would clearly interact with dofetilide. She feels she can stop Zoloft now. Thank you for entrusting me with the care of the patient Warm regards Sincerely Joby Cruz
== END | disposition home or self-care (01) ==
LOC: CATHEP 08:07
PROVIDERS: ATTEND Internal Medicine Clinical Cardiac Electrophysiology
DX: I48.19 Other persistent atrial fibrillation (principal); I87.1 Compression of vein; I13.0 Hypertensive heart and chronic kidney disease with heart failure and stage 1 through stage 4 chronic kidney disease, or unspecified chronic kidney disease; E66.01 Morbid (severe) obesity due to excess calories; I50.9 Heart failure, unspecified; M19.90 Unspecified osteoarthritis, unspecified site; Z79.01 Long term (current) use of anticoagulants; Z79.890 Hormone replacement therapy; Z79.899 Other long term (current) drug therapy; Z86.718 Personal history of other venous thrombosis and embolism; Z95.0 Presence of cardiac pacemaker
CPT/HCPCS: 36005; 75820; 80053; 84443; C8929; Q9950; 93306

== ENCOUNTER 2022-11-20 12:23 | Inpatient (IN) | payer MEDICARE, OTHER ==
[2022-11-20] MEDS ORDERED: ACETAMINOPHEN TAB 500 MG TAB PO PRN (13:55)
[2022-11-20] MEDS: RIVAROXABAN 20 MG TAB PO SCH (14:19)
[2022-11-20 15:02] LABS: INR 1.1 (<1.2); Prothrombin Time 11.2 sec (9.0-12.0)
[2022-11-20 15:15] LABS: African American GFR (CKD) 70 (>60 ml/min/1.73 sqM); Anion Gap 10 mmol/L; Blood Urea Nitrogen 26 mg/dL (7-17); Calcium 9.1 mg/dL (8.4-10.2); Carbon Dioxide 29 mmol/L (22-30); Chloride 103 mmol/L (98-107); Glucose 97 mg/dL (74-99); Non-African American GFR(CKD) 61 (>60 ml/min/1.73 sqM); Potassium 4.5 mmol/L (3.5-5.1); Sodium 142 mmol/L (137-145)
[2022-11-20] MEDS: DOFETILIDE 250 MCG CAP PO SCH (17:58)
--- NOTE | 2022-11-20 19:00 | P.HPCAR ---
History of Present Illness This is Dr. Cruz dictating an H/P on this patient The patient was interviewed and examined IMPRESSION / ASSESSMENT: Persistent symptomatic atrial fibrillation Failed amiodarone She has a His bundle pacemaker/biventricular pacemaker in situ which is mostly pacing the right ventricle Congestive heart failure, nonischemic ejection fraction 40% Morbid obesity History of chronic kidney disease Hypertension History of DVT PLAN: Ambulate redness has been discontinued since long time Her renal function is improved She remains symptomatic from atrial fibrillation She'll be admitted today for initiation of dofetilide as an inpatient and electrical cardioversion thereafter to maintain sinus rhythm In the past when she was in sinus rhythm LV function had normalized Spironolactone and oral magnesium will be admitted Dofetilide will be initiated at 250 g twice daily Possible electrical cardioversion later this week HPI Patient remains symptomatic with shortness of breath on exertion secondary to atrial fibrillation and atrial fibrillation mediated cardio myopathy She complains of shortness of breath at exertion Denies any chest discomfort or syncope ROS: No fever chills or rigors, no cough, phlegm or expectoration, no nausea, vomiting or diarrhea, no hematuria, dysuria, no musculoskeletal complaints, no strokes or seizures, no skin lesions. EXAMINATION: Afebrile pulse rate in the 80s, blood pressure 143/79 mmHg Heart sounds S1-S2 are normal but irregular Breath sounds are reduced bilaterally no rhonchi no crackles No lower extremity edema REVIEW OF LABS, ECG & MEDICAL DATA Twelve-lead EKG shows atrial fibrillation with intermittent RV pacing The absolute QT interval is 400-420 ms during pacing On paced QT interval is 360 ms TSH is normal at 2.8 Calcium 9.1 BUN 26 and creatinine 1.0 Magnesium 2.3 Sodium 142 and potassium normal at 4.5 Physical Exam Vitals: Vital Signs Temp Pulse Resp BP Pulse Ox 11/20/22 15:30 98 F 88 18 143/79 100 Intake and Output 11/20/22 11/20/22 11/20/22 06:59 14:59 22:59 Other: Weight 148.7 kg Past Medical History Past Medical History: Atrial Fibrillation, Heart Failure, Deep Vein Thrombosis (DVT), Hypertension, Osteoarthritis (OA) Additional Past Medical History / Comment(s): See Dr. Cruz's H&P. States DrMegan's are watching her kidneys. History of Any Multi-Drug Resistant Organisms: None Reported Past Surgical History: Section, Heart Catheterization, Pacemaker Additional Past Surgical History / Comment(s): Cardioversions , loop recorder (2018), RUI, pacemaker (2019), bilateral tibal plateau fractures. Past Anesthesia/Blood Transfusion Reactions: No Reported Reaction Type of Cardiac Device: Unknown Device Placement Date:: 2018 Past Psychological History: Anxiety, Depression Smoking Status: Never smoker Past Alcohol Use History: Occasional Past Drug Use History: None Reported - Past Family History Mother Family Medical History: No Reported History Brother(s) Family Medical History: Cancer Additional Family Medical History / Comment(s): Colon Sister(s) Family Medical History: Cancer Additional Family Medical History / Comment(s): Breast Physical Examination Vital Signs Temp Pulse Resp BP Pulse Ox 11/20/22 15:30 98 F 88 18 143/79 100 Intake and Output 11/20/22 11/20/22 11/20/22 06:59 14:59 22:59 Other: Weight 148.7 kg Results 11/20/22 14:47 Coagulation 11/20/22 Range/Units 14:47 PT 11.2 (9.0-12.0) sec Comprehensive Metabolic Panel 11/20/22 Range/Units 14:47 Sodium 142 (137-145) mmol/L Potassium 4.5 (3.5-5.1) mmol/L Chloride 103 (98-107) mmol/L Carbon Dioxide 29 (22-30) mmol/L BUN 26 H (7-17) mg/dL Creatinine 1.00 (0.52-1.04) mg/dL Glucose 97 (74-99) mg/dL Calcium 9.1 (8.4-10.2) mg/dL Current Medications Generic Name Dose Route Start Last Admin Trade Name Freq PRN Reason Stop Dose Admin Acetaminophen 500 mg 11/20/22 13:55 Acetaminophen Tab 500 Mg Tab PO Q6HR PRN Fever and/ or Pain Atorvastatin Calcium 80 mg 11/21/22 09:00 Atorvastatin 80 Mg Tab PO DAILY [facility] Buspirone HCl 15 mg 11/20/22 20:00 Buspirone Hcl 5 Mg Tab PO DAILY [facility] Calcitriol 0.5 mcg 11/26/22 09:00 Calcitriol 0.25 Mcg Cap PO DAILY [facility] Desvenlafaxine Succinate 25 mg 11/20/22 20:00 Desvenlafaxine Succinate 50 Mg Tab.Er.24h PO DAILY [facility] Dofetilide 250 mcg 11/20/22 18:00 11/20/22 17:58 Dofetilide 250 Mcg Cap PO 250 mcg Q12HR@0600,1800 [facility] Administration Furosemide 20 mg 11/21/22 09:00 Furosemide 20 Mg Tab PO DAILY [facility] Levothyroxine Sodium 100 mcg 11/21/22 06:30 Levothyroxine 100 Mcg Tab PO DAILY@0630 [facility] Magnesium Oxide 400 mg 11/21/22 09:00 Magnesium Oxide 400 Mg Tab PO DAILY [facility] Metoprolol Tartrate 150 mg 11/20/22 21:00 Metoprolol Tartrate 50 Mg Tab PO BID [facility] Multivitamins 1 each 11/21/22 09:00 Multivitamins, Thera 1 Each Tab PO DAILY [facility] Rivaroxaban 20 mg 11/20/22 17:30 11/20/22 14:19 Rivaroxaban 20 Mg Tab PO Not Given W/SUPPER [facility] Protocol Spironolactone 25 mg 11/21/22 09:00 Spironolactone 25 Mg Tab PO DAILY [facility] Intake and Output 11/20/22 11/20/22 11/20/22 06:59 14:59 22:59 Other: Weight 148.7 kg Patient Weight 11/21/22 06:59 Weight 148.7 kg 11/20/22 14:47
[2022-11-20] MEDS: METOPROLOL TARTRATE 50 MG TAB PO SCH (19:58)
[2022-11-20] MEDS: busPIRone HCl 5 MG TAB PO SCH (19:59)
[2022-11-20] MEDS: DESVENLAFAXINE SUCCINATE 50 MG TAB.ER.24H PO SCH (20:46)
[2022-11-20] MEDS ORDERED: METOPROLOL TARTRATE 50 MG TAB PO SCH (21:00)
[2022-11-21] MEDS: DOFETILIDE 250 MCG CAP PO SCH ×2 (06:11→17:38)
[2022-11-21] MEDS: LEVOTHYROXINE 100 MCG TAB PO SCH (06:11)
[2022-11-21] MEDS: SPIRONOLACTONE 25 MG TAB PO SCH (09:10)
[2022-11-21] MEDS: DESVENLAFAXINE SUCCINATE 50 MG TAB.ER.24H PO SCH ×2 (09:11→09:15)
[2022-11-21] MEDS: MAGNESIUM OXIDE 400 MG TAB PO SCH (09:11)
[2022-11-21] MEDS: busPIRone HCl 5 MG TAB PO SCH ×3 (09:12→19:49)
[2022-11-21] MEDS: ATORVASTATIN 80 MG TAB PO SCH (09:12)
[2022-11-21] MEDS: FUROSEMIDE 20 MG TAB PO SCH (09:12)
[2022-11-21] MEDS: MULTIVITAMINS, THERA 1 EACH TAB PO SCH (09:12)
[2022-11-21] MEDS: METOPROLOL TARTRATE 50 MG TAB PO SCH ×2 (09:15→19:49)
[2022-11-21 10:03] LABS: Calcium 8.9 mg/dL (8.4-10.2); Magnesium 2.3 mg/dL (1.6-2.3); Potassium 4.8 mmol/L (3.5-5.1)
--- NOTE | 2022-11-21 14:10 | P.PN ---
Subjective Progress Note Date: 11/21/22 The patient was interviewed and examined IMPRESSION / ASSESSMENT: Persistent symptomatic atrial fibrillation Failed amiodarone She has a His bundle pacemaker/biventricular pacemaker in situ which is mostly pacing the right ventricle Congestive heart failure, nonischemic ejection fraction 40% Morbid obesity History of chronic kidney disease Hypertension History of DVT PLAN: She remains symptomatic from atrial fibrillation Continue patient on Tikosyn 250 mg twice daily and repeat EKG as scheduled Patient is scheduled for cardioversion tomorrow HPI Patient remains symptomatic with shortness of breath on exertion secondary to atrial fibrillation and atrial fibrillation mediated cardio myopathy She complains of shortness of breath at exertion Denies any chest discomfort or syncope ROS: No fever chills or rigors, no cough, phlegm or expectoration, no nausea, vomiting or diarrhea, no hematuria, dysuria, no musculoskeletal complaints, no strokes or seizures, no skin lesions. EXAMINATION: Afebrile pulse rate in the 70s-100, blood pressure 145/74 mmHg Heart sounds S1-S2 are normal but irregular Breath sounds are reduced bilaterally no rhonchi no crackles No lower extremity edema REVIEW OF LABS, ECG & MEDICAL DATA Twelve-lead EKG shows atrial fibrillation with intermittent RV pacing The absolute QT interval is 420 ms during pacing, unchanged On paced QT interval is 360 ms TSH is normal at 2.8 Calcium 8.9 BUN 20 and creatinine 0.9 to Magnesium 2.3 Sodium 142 and potassium normal at 4.8 Nurse practitioner note has been reviewed, I agree with the documented findings and plan of care. Patient was seen and examined. Objective - Vital Signs Vital signs: Vital Signs Temp 98.1 F 11/21/22 04:00 Pulse 90 11/21/22 12:24 Resp 16 11/21/22 12:24 BP 145/74 11/21/22 12:24 Pulse Ox 98 11/21/22 12:24 FiO2 Intake & Output 11/20/22 11/21/22 11/21/22 18:59 06:59 18:59 Intake Total 898 Balance 898 Weight 148.7 kg Intake: Oral 898 Other: # Voids 2 - Labs CBC & Chem 7: 11/21/22 09:34 Labs: Abnormal Lab Results - Last 24 Hours (Table) 11/20/22 11/21/22 Range/Units 14:47 09:34 Carbon Dioxide 31 H (22-30) mmol/L BUN 26 H 20 H (7-17) mg/dL Glucose 102 H (74-99) mg/dL
[2022-11-21] MEDS: RIVAROXABAN 20 MG TAB PO SCH (17:38)
[2022-11-21] MEDS: SODIUM CHLORIDE 0.9% 1,000 ML IV SCH (18:13)
[2022-11-22 05:30] LABS: Calcium 8.7 mg/dL (8.4-10.2); Magnesium 2.3 mg/dL (1.6-2.3); Potassium 4.7 mmol/L (3.5-5.1)
[2022-11-22] MEDS: MULTIVITAMINS, THERA 1 EACH TAB PO SCH (06:01)
[2022-11-22] MEDS: LEVOTHYROXINE 100 MCG TAB PO SCH (06:02)
[2022-11-22] MEDS: FUROSEMIDE 20 MG TAB PO SCH (06:02)
[2022-11-22] MEDS: SPIRONOLACTONE 25 MG TAB PO SCH (06:02)
[2022-11-22] MEDS: ATORVASTATIN 80 MG TAB PO SCH (06:02)
[2022-11-22] MEDS: DOFETILIDE 250 MCG CAP PO SCH ×2 (06:02→17:48)
[2022-11-22] MEDS: MAGNESIUM OXIDE 400 MG TAB PO SCH (06:02)
[2022-11-22] MEDS: METOPROLOL TARTRATE 50 MG TAB PO SCH ×2 (06:02→21:19)
[2022-11-22] MEDS ORDERED: PROPOFOL 10 MG/ML 20 ML VIAL IV ONE (07:14)
--- NOTE | 2022-11-22 07:56 | P.EPPROC ---
- EP Procedure Note Electrophysiology Procedure Note: Diagnoses Persistent symptomatic atrial fibrillation that has failed treatment Admitted for inpatient in the cessation of Tikosyn followed by electrical cardioversion Procedure Successful electrical cardioversion with 200 J shocks in the AP configuration and the anterior apical configuration simultaneously, for a total of 400 J Patient went into an atrial paced rhythm with ventricular pacing from the His bundle lead Pacemaker was interrogated and reprogrammed to [id number], base rate 60 bpm LV lead/His bundle lead pacing was turned off since it has chronically had thresholds and paces the right ventricle instead of the His bundle Plan Continue anticoagulation Continue dofetilide Twelve-lead EKG today to check QT interval
[2022-11-22] MEDS: DESVENLAFAXINE SUCCINATE 50 MG TAB.ER.24H PO SCH (08:51)
[2022-11-22] MEDS ORDERED: MAGNESIUM SULFATE-D5W PMX 1 GM in DEXTROSE/WATER 1 100ML.BAG IVPB PRN (09:15)
--- NOTE | 2022-11-22 11:50 | P.PN ---
Subjective Progress Note Date: 11/22/22 The patient was interviewed and examined IMPRESSION / ASSESSMENT: Persistent symptomatic atrial fibrillation status post electrocardioversion 11/22 Failed amiodarone She has a His bundle pacemaker/biventricular pacemaker in situ which is mostly pacing the right ventricle Chronic systolic heart failure, nonischemic ejection fraction 40% Morbid obesity History of chronic kidney disease Hypertension History of DVT PLAN: Patient is currently in a sinus rhythm Continue patient on Tikosyn 250 mg twice daily and repeat EKG as scheduled HPI Patient remains symptomatic with shortness of breath on exertion secondary to atrial fibrillation and atrial fibrillation mediated cardio myopathy She complains of shortness of breath at exertion Denies any chest discomfort or syncope EXAMINATION: Afebrile pulse rate in the 70s-100, blood pressure 145/74 mmHg Heart sounds S1-S2 are normal but irregular Breath sounds are reduced bilaterally no rhonchi no crackles No lower extremity edema REVIEW OF LABS, ECG & MEDICAL DATA Twelve-lead EKG shows sinus rhythm with intermittent RV pacing The absolute QT interval is 480 ms TSH is normal at 2.8 Calcium 8.9 BUN 23 and creatinine 0.93 Magnesium 2.5 Sodium 139 and potassium normal at 4.7 Nurse practitioner note has been reviewed, I agree with the documented findings and plan of care. Patient was seen and examined. Objective - Vital Signs Vital signs: Vital Signs Temp 98.0 F 11/22/22 04:00 Pulse 77 11/22/22 04:00 Resp 19 11/22/22 04:00 BP 116/70 11/22/22 04:00 Pulse Ox 96 11/22/22 04:00 FiO2 Intake & Output 11/21/22 11/22/22 11/22/22 18:59 06:59 18:59 Intake Total 1438 Balance 1438 Intake: Oral 1438 Other: # Voids 4 1 - Labs CBC & Chem 7: 11/22/22 04:42 Labs: Abnormal Lab Results - Last 24 Hours (Table) 11/21/22 11/22/22 Range/Units 09:34 04:42 Carbon Dioxide 31 H (22-30) mmol/L BUN 20 H 23 H (7-17) mg/dL Glucose 102 H 105 H (74-99) mg/dL
[2022-11-22] MEDS: SODIUM CHLORIDE 0.9% 1,000 ML IV SCH (13:54)
[2022-11-22] MEDS: RIVAROXABAN 20 MG TAB PO SCH (17:48)
[2022-11-22] MEDS: busPIRone HCl 5 MG TAB PO SCH (21:19)
[2022-11-23] MEDS: DOFETILIDE 250 MCG CAP PO SCH ×2 (05:58→17:38)
[2022-11-23] MEDS: LEVOTHYROXINE 100 MCG TAB PO SCH (05:58)
[2022-11-23] MEDS: ATORVASTATIN 80 MG TAB PO SCH (09:41)
[2022-11-23] MEDS: FUROSEMIDE 20 MG TAB PO SCH (09:41)
[2022-11-23] MEDS: MAGNESIUM OXIDE 400 MG TAB PO SCH (09:41)
[2022-11-23] MEDS: MULTIVITAMINS, THERA 1 EACH TAB PO SCH (09:41)
[2022-11-23] MEDS: SPIRONOLACTONE 25 MG TAB PO SCH (09:41)
[2022-11-23] MEDS: METOPROLOL TARTRATE 50 MG TAB PO SCH ×2 (09:44→21:22)
[2022-11-23] MEDS: DESVENLAFAXINE SUCCINATE 50 MG TAB.ER.24H PO SCH (09:45)
[2022-11-23 10:34] LABS: Magnesium 2.3 mg/dL (1.6-2.3)
[2022-11-23 10:39] LABS: Potassium 5.7 mmol/L (3.5-5.1)
--- NOTE | 2022-11-23 11:39 | P.PN ---
Subjective Progress Note Date: 11/23/22 The patient was interviewed and examined IMPRESSION / ASSESSMENT: Persistent symptomatic atrial fibrillation status post electrocardioversion 11/22 Failed amiodarone She has a His bundle pacemaker/biventricular pacemaker in situ which is mostly pacing the right ventricle Chronic systolic heart failure, nonischemic ejection fraction 40% Morbid obesity History of chronic kidney disease Hypertension History of DVT PLAN: Patient is currently in a sinus rhythm Continue patient on Tikosyn 250 mg twice daily and repeat EKG as scheduled HPI Patient remains symptomatic with shortness of breath on exertion secondary to atrial fibrillation and atrial fibrillation mediated cardio myopathy She complains of shortness of breath at exertion Denies any chest discomfort or syncope EXAMINATION: Afebrile pulse rate in the 55-64, blood pressure 130/70 mmHg Heart sounds S1-S2 are normal but irregular Breath sounds are reduced bilaterally no rhonchi no crackles No lower extremity edema REVIEW OF LABS, ECG & MEDICAL DATA Twelve-lead EKG shows sinus rhythm with intermittent RV pacing The absolute QT interval is 440 ms TSH is normal at 2.8 Calcium 9.0 BUN 22 and creatinine 0.86 Magnesium 2.3 Sodium 1140 and potassium 5.7 Nurse practitioner note has been reviewed, I agree with the documented findings and plan of care. Patient was seen and examined. Objective - Vital Signs Vital signs: Vital Signs Temp 97.8 F 11/22/22 20:00 Pulse 55 L 11/23/22 04:00 Resp 18 11/23/22 04:00 BP 104/69 11/23/22 04:00 Pulse Ox 94 L 11/23/22 04:00 FiO2 Intake & Output 11/22/22 11/23/22 11/23/22 18:59 06:59 18:59 Intake Total 776 480 Balance 776 480 Intake: Oral 776 480 Other: # Voids 3 3 - Labs CBC & Chem 7: 11/23/22 09:43 Labs: Abnormal Lab Results - Last 24 Hours (Table) 11/22/22 Range/Units 09:52 Magnesium 2.5 H (1.6-2.3) mg/dL
[2022-11-23] MEDS: RIVAROXABAN 20 MG TAB PO SCH (17:38)
--- NOTE | 2022-11-23 18:11 | P.PN ---
Progress Note - Text Patient on dofetilide Successful electrical cardioversion QT interval is around 440 ms Today's potassium is 5.7. Avoid reduced the dose of spironolactone to 12.5 g by mouth daily Follow potassium and renal function Follow QT interval Likely discharge on Sunday if there is no further QT prolongation on dofetilide 250 g twice daily Please continue dofetilide at 250 g twice daily and keep absolute QT interval below 460 ms
[2022-11-23] MEDS: SODIUM CHLORIDE 0.9% 1,000 ML IV SCH (21:21)
[2022-11-23] MEDS: busPIRone HCl 5 MG TAB PO SCH (21:21)
[2022-11-24] MEDS: DOFETILIDE 250 MCG CAP PO SCH ×2 (06:01→17:51)
[2022-11-24] MEDS: LEVOTHYROXINE 100 MCG TAB PO SCH (06:03)
[2022-11-24] MEDS: ATORVASTATIN 80 MG TAB PO SCH (08:25)
[2022-11-24] MEDS: MAGNESIUM OXIDE 400 MG TAB PO SCH (08:25)
[2022-11-24] MEDS: MULTIVITAMINS, THERA 1 EACH TAB PO SCH (08:25)
[2022-11-24] MEDS: FUROSEMIDE 20 MG TAB PO SCH (08:25)
[2022-11-24] MEDS: SPIRONOLACTONE 25 MG TAB PO SCH (08:25)
[2022-11-24] MEDS: METOPROLOL TARTRATE 50 MG TAB PO SCH ×2 (08:26→19:57)
[2022-11-24 09:53] LABS: Calcium 9.3 mg/dL (8.4-10.2); Magnesium 2.2 mg/dL (1.6-2.3); Potassium 4.4 mmol/L (3.5-5.1)
[2022-11-24] MEDS: DESVENLAFAXINE SUCCINATE 50 MG TAB.ER.24H PO SCH (10:41)
[2022-11-24] MEDS: SODIUM CHLORIDE 0.9% 1,000 ML IV SCH (10:42)
--- NOTE | 2022-11-24 11:12 | P.PN ---
Subjective Progress Note Date: 11/24/22 The patient was interviewed and examined IMPRESSION / ASSESSMENT: Persistent symptomatic atrial fibrillation status post electrocardioversion 11/22 Failed amiodarone She has a His bundle pacemaker/biventricular pacemaker in situ which is mostly pacing the right ventricle Chronic systolic heart failure, nonischemic ejection fraction 40% Morbid obesity History of chronic kidney disease Hypertension History of DVT PLAN: Patient is currently in a sinus rhythm Continue patient on Tikosyn 250 mg twice daily and repeat EKG as scheduled HPI Patient remains symptomatic with shortness of breath on exertion secondary to atrial fibrillation and atrial fibrillation mediated cardio myopathy She complains of shortness of breath at exertion Denies any chest discomfort or syncope EXAMINATION: Afebrile pulse rate in the 55-64, blood pressure 130/70 mmHg Heart sounds S1-S2 are normal but irregular Breath sounds are reduced bilaterally no rhonchi no crackles No lower extremity edema REVIEW OF LABS, ECG & MEDICAL DATA Twelve-lead EKG shows sinus rhythm with intermittent RV pacing The absolute QT interval is 400 ms TSH is normal at 2.8 Calcium 9.3 BUN 22 and creatinine 1.01 Magnesium 2.2 Sodium 141 and potassium 4.4 Nurse practitioner note has been reviewed, I agree with the documented findings and plan of care. Patient was seen and examined. Objective - Vital Signs Vital signs: Vital Signs Temp 97.5 F L 11/23/22 20:00 Pulse 70 11/24/22 04:00 Resp 18 11/24/22 04:00 BP 120/74 11/24/22 04:00 Pulse Ox 95 11/24/22 04:00 FiO2 Intake & Output 11/23/22 11/24/22 11/24/22 18:59 06:59 18:59 Intake Total 1796 358 Output Total 2 240 Balance 1794 -240 358 Intake: Oral 1796 358 Output: Urine 2 240 Other: # Voids 1 - Labs CBC & Chem 7: 11/24/22 09:16 Labs: Abnormal Lab Results - Last 24 Hours (Table) 11/23/22 Range/Units 09:43 Potassium 5.7 H (3.5-5.1) mmol/L BUN 22 H (7-17) mg/dL
[2022-11-24 13:36] VITALS: RESP 16
[2022-11-24] MEDS: RIVAROXABAN 20 MG TAB PO SCH (17:51)
[2022-11-24] MEDS: busPIRone HCl 5 MG TAB PO SCH (19:57)
[2022-11-24 22:00] VITALS: TEMP 98.1
[2022-11-25] MEDS: DOFETILIDE 250 MCG CAP PO SCH (06:05)
[2022-11-25] MEDS: LEVOTHYROXINE 100 MCG TAB PO SCH (06:05)
[2022-11-25] MEDS: ATORVASTATIN 80 MG TAB PO SCH (08:51)
[2022-11-25] MEDS: MAGNESIUM OXIDE 400 MG TAB PO SCH (08:51)
[2022-11-25] MEDS: SPIRONOLACTONE 25 MG TAB PO SCH (08:51)
[2022-11-25] MEDS: MULTIVITAMINS, THERA 1 EACH TAB PO SCH (08:51)
[2022-11-25] MEDS: DESVENLAFAXINE SUCCINATE 50 MG TAB.ER.24H PO SCH (08:52)
[2022-11-25] MEDS ORDERED: METOPROLOL TARTRATE 50 MG TAB PO SCH (09:00)
[2022-11-25 09:01] LABS: Calcium 9.2 mg/dL (8.4-10.2); Magnesium 2.2 mg/dL (1.6-2.3); Potassium 4.5 mmol/L (3.5-5.1)
[2022-11-25 12:20] VITALS: BP 147/85; PULSE 67
--- NOTE | 2022-11-25 14:33 | P.DS ---
Providers Date of admission: 11/20/22 12:23 Attending physician: Joby Cruz Primary care physician: Stated None Hospital Course: This is [facility], I'm dictating on behalf of Dr. Cruz's H&P and A&P. Patient was interviewed and examined. Patient is a pleasant 62-year-old female who was admitted to the hospital for dofetilide loading. Patient is doing well. She states she is ready to go home. A review of 4 EKG this morning does demonstrate an appropriate QT interval. This has been maintained on 250 g of dofetilide daily. Patient can be discharged home on this. We will discontinue her Lasix. She should continue home on mag oxide 400 mg daily. She should also continue on spironolactone 12.5 mg daily. Follow-up with Dr. Cruz in the office. GENERAL: Well-appearing, well-nourished and in no acute distress. NECK: Supple without JVD or thyromegaly. LUNGS: Breath sounds clear to auscultation bilaterally. Respiration equal and unlabored. No wheezes, rales or rhonchi. HEART: Regular rate and rhythm without murmurs, rubs or gallops. S1 and S2 heard. EXTREMITIES: Normal range of motion, no edema. No clubbing or cyanosis. Peripheral pulses intact and strong. VITALS: Temp 98.1, pulse 61, respirations 16, blood pressure 136/76, O2 saturation 98% on room air TELEMETRY: Normal sinus rhythm LABS: Sodium 140, potassium 4.5, B1 21, creatinine 1.0, calcium 9.2, magnesium 2.2 IMPRESSION: 1. Persistent symptomatic atrial fibrillation status post electrical cardioversion 510, failed amiodarone 2. His bundle pacemaker/biventricular pacemaker in situ pacing right ventricle 3. Chronic systolic heart failure, nonischemic EF 40% 4. Morbid obesity 5. History of chronic kidney disease 6. Hypertension 7. History of DVT PLAN: Patient may be discharged home. Continue dofetilide 250 g daily. Discontinue Lasix. Continue magnesium oxide 400 mg daily. Continue spironolactone 12.5 mg daily. Patient should follow-up with Dr. Cruz in the office. Patient Condition at Discharge: Good Plan - Discharge Summary New Discharge Prescriptions: No Action busPIRone HCL 15 mg PO HS Acetaminophen [Tylenol] 1,000 mg PO Q6H PRN PRN Reason: Pain Rivaroxaban [Xarelto] 20 mg PO DAILY Cyanocobalamin (Vitamin B-12) [Vitamin B-12] 1,000 mcg PO DAILY calcitrioL [Calcitriol] 0.5 mcg PO RICARDO Multivitamins, Thera [Multivitamin (formulary)] 1 tab PO DAILY Metoprolol Tartrate [Lopressor] 100 mg PO BID Spironolactone [Aldactone] 12.5 mg PO DAILY Levothyroxine Sodium [address] [facility] Desvenlafaxine Succinate [Pristiq ER] 25 mg PO HS Atorvastatin [Lipitor] 80 mg PO HS Magnesium Oxide [Mag-Ox] 400 mg PO DAILY Dofetilide [Tikosyn] 250 mcg PO Q12HR Discharge Medication List Acetaminophen [Tylenol] 1,000 mg PO Q6H PRN 07/14/20 [History] Cyanocobalamin (Vitamin B-12) [Vitamin B-12] 1,000 mcg PO DAILY 07/14/20 [History] Rivaroxaban [Xarelto] 20 mg PO DAILY 07/14/20 [History] busPIRone HCL 15 mg PO HS 07/14/20 [History] Levothyroxine Sodium 100 mcg PO AC-BRKFST 09/27/22 [History] calcitrioL [Calcitriol] 0.5 mcg PO RICARDO 09/27/22 [History] Atorvastatin [Lipitor] 80 mg PO HS 11/20/22 [History] Desvenlafaxine Succinate [Pristiq ER] 25 mg PO HS 11/20/22 [History] Metoprolol Tartrate [Lopressor] 100 mg PO BID 11/20/22 [History] Multivitamins, Thera [Multivitamin (formulary)] 1 tab PO DAILY 11/20/22 [His tory] Dofetilide [Tikosyn] 250 mcg PO Q12HR 11/25/22 [History] Magnesium Oxide [Mag-Ox] 400 mg PO DAILY 11/25/22 [History] Spironolactone [Aldactone] 12.5 mg PO DAILY 11/25/22 [History] Follow up Appointment(s)/Referral(s): Joby Cruz MD [STAFF PHYSICIAN] - 6 Weeks Patient Instructions/Handouts: Dofetilide (By mouth) Activity/Diet/Wound Care/Special Instructions: Patient given prescriptions for new medications. One week supply of Tikosyn given to [facility] pharmacy-to be delivered to patients room. Discharge Disposition: HOME SELF-CARE
== END 2022-11-25 14:43 | disposition home or self-care (01) | DRG 949 ==
LOC: 3SCARD 12:23
PROVIDERS: ADMIT Internal Medicine Clinical Cardiac Electrophysiology; ATTEND Internal Medicine Clinical Cardiac Electrophysiology
PROC: 5A2204Z Restoration of Cardiac Rhythm, Single (ICD-10-PCS; principal; 2022-11-23)
PROC: 4B02XSZ Measurement of Cardiac Pacemaker, External Approach (ICD-10-PCS; 2022-11-23)
DX: Z51.81 Encounter for therapeutic drug level monitoring (principal); I13.0 Hypertensive heart and chronic kidney disease with heart failure and stage 1 through stage 4 chronic kidney disease, or unspecified chronic kidney disease; I50.22 Chronic systolic (congestive) heart failure; I42.9 Cardiomyopathy, unspecified; I48.19 Other persistent atrial fibrillation; Z68.42 Body mass index [BMI] 45.0-49.9, adult; E66.01 Morbid (severe) obesity due to excess calories; N18.9 Chronic kidney disease, unspecified; Z95.0 Presence of cardiac pacemaker; Z86.718 Personal history of other venous thrombosis and embolism; Z95.818 Presence of other cardiac implants and grafts; Z79.890 Hormone replacement therapy; Z79.01 Long term (current) use of anticoagulants; Z79.899 Other long term (current) drug therapy
CPT/HCPCS: 80048; 83735; 84443; 85610; 92960

== ENCOUNTER 2024-10-07 14:03 | Day surgery (SDC) | payer MEDICARE, OTHER ==
[2024-10-07] MEDS: SODIUM CHLORIDE 0.9% 1,000 ML IV SCH (14:16)
[2024-10-07] MEDS: SODIUM CHLORIDE 0.9% 500 ML 500 ML IV ONE (14:16)
[2024-10-07] MEDS: IV FLUID CONTINUATION 1,000 ML IV ONE (14:16)
[2024-10-07 14:46] VITALS: PULSE 100
[2024-10-07] MEDS: ceFAZolin 1 GM in SODIUM CHLORIDE 0.9% IRRIG BTL 250 ML IRRIGATION PRN (16:36)
[2024-10-07] MEDS: MIDAZOLAM 2 MG/2 ML VIAL IVP ONE ×3 (16:47→17:09)
[2024-10-07] MEDS: fentaNYL (PF) 50 MCG/ML 2 ML AMP IVP ONE (16:49)
[2024-10-07] MEDS: LIDOCAINE 1% INJ 10MG/ML (20 ML MDV) SQ ONE ×3 (16:52→17:17)
[2024-10-07] MEDS: ROPIVACAINE 5 MG/ML 30 ML VIAL MISCELLANE ONE ×2 (16:54→17:12)
[2024-10-07] MEDS ORDERED: VANCOMYCIN IV PER PHARMACY 1 EACH MISC MISCELLANE PRN (17:13)
[2024-10-07] MEDS: VANCOMYCIN 1,250 MG in SODIUM CHLORIDE 0.9% 250 ML IVPB STA (17:25)
[2024-10-07] MEDS ORDERED: ACETAMINOPHEN TAB 325 MG TAB PO PRN (18:24)
--- NOTE | 2024-10-07 18:31 | P.EPPROC ---
- EP Procedure Note Electrophysiology Procedure Note: Diagnosis Persistent atrial fibrillation Underlying sick sinus syndrome Status post BiV pacemaker implant for management of sick sinus syndrome and ventricular pacing This device at [facility] Pacemaker generator change planned today Final diagnosis Biventricular pacemaker generator change New subfascial pocket. Original pocket was very superficial and subcutaneous, under the skin and close to the clavicle. New subfascial pocket was made more cephalad Patient's old loop monitor was also within the same pocket and this was also explanted IV antibiotics including vancomycin given an antibiotic pouch placed Diagnosis Bradycardia, standard pacemaker will result in RV pacing >40% Procedure Biventricular pacemaker generator change Loop monitor explant Completely new pocket in the subfascial location made Extended procedure duration Details Patient was brought to the EP lab in a fasting state. Written informed consent was obtained prior to the procedure. Conscious sedation provided by az IV antibiotics administered. Local anesthesia administered. A 4 cm incision made in the pectoral area. New subfascial pocket made. Partial capsulectomy performed Chronic atrial lead position the right atrial appendage. P waves 4.5 mV, pacing impedance 380 ohms and pacing threshold 0.75 V at 0.4 ms Chronic RV lead position in the RV apex. R waves 7.3 mV, pacing impedance 665 ohms and pacing threshold 0.5 V at 0.4 ms Chronic His bundle lead. This was pacing the right ventricle. No His bundle capture. Pacing pins 487 ohms, pacing threshold 1.75 V at 0.4 ms Biventricular pacemaker device connected to the leads and placed in the subfascial pocket Antibiotic pouch placed Chronic loop monitor that was implanted before permanent pacemaker implantation in [place] was still in situ This was explanted under local anesthesia Patient tolerated the procedure well without acute complications.
[2024-10-07] MEDS: ATORVASTATIN 80 MG TAB PO SCH (20:28)
[2024-10-07] MEDS: DOFETILIDE 250 MCG CAP PO SCH (20:28)
[2024-10-07] MEDS: METOPROLOL TARTRATE 50 MG TAB PO SCH (20:28)
[2024-10-07] MEDS: RIVAROXABAN 20 MG TAB PO SCH (20:29)
[2024-10-07 22:21] VITALS: BP 156/82; RESP 18; TEMP 98
[2024-10-08] MEDS ORDERED: RIVAROXABAN 20 MG TAB PO SCH (09:00)
== END 2024-10-07 22:06 | disposition home or self-care (01) ==
LOC: CATHEP 14:03 → 6NMEDSUR 17:54 → CATHEP 22:06
PROVIDERS: ATTEND Internal Medicine Clinical Cardiac Electrophysiology
DX: I48.19 Other persistent atrial fibrillation (principal); I73.9 Peripheral vascular disease, unspecified; I42.9 Cardiomyopathy, unspecified; I13.0 Hypertensive heart and chronic kidney disease with heart failure and stage 1 through stage 4 chronic kidney disease, or unspecified chronic kidney disease; I50.9 Heart failure, unspecified; E78.5 Hyperlipidemia, unspecified; E66.01 Morbid (severe) obesity due to excess calories; N18.9 Chronic kidney disease, unspecified; Z68.41 Body mass index [BMI] 40.0-44.9, adult; Z82.49 Family history of ischemic heart disease and other diseases of the circulatory system; Z86.718 Personal history of other venous thrombosis and embolism; Z45.010 Encounter for checking and testing of cardiac pacemaker pulse generator [battery]; Z79.82 Long term (current) use of aspirin; Z79.890 Hormone replacement therapy; Z79.02 Long term (current) use of antithrombotics/antiplatelets; Z79.899 Other long term (current) drug therapy
CPT/HCPCS: 33229; 33286; C2621; J2250; J3370; J0690; J2003; J3010; J2795